=== PATIENT | female | born 1940 | race Caucasian/White ===

== ENCOUNTER → 2017-03-01 | Outpatient (CLI) | payer MEDICARE, BC ==
[~2017-03-01] MED LIST: ASPIRIN E.C. 8181 MG PO; ATIVAN 0.50.5 MG/TAB PO; AUGMENTIN PO; B-121000 MCG PO; BASAGLAR K100 UNIT/1 SQ; BEANO PO; CATAPRES 0.1MG0.1 MG PO; CELEBREX 200MG200 MG PO; CELEBREX200 MG PO; CORTIZONE-10 MAXIM11 TP; CRESTOR20 MG PO; CYMBALTA 30MG30 MG PO; DESITIN RAPID REL13% TP; DETROL 2MG TAB2 MG PO; FIBER0.52 GM PO; FLAX OIL1000 MG PO; FOLIC ACID 11 MG/TA1 PO; GABAPENTIN600 MG PO; GENTAMICIN EYE D5 ML OD; GRALISE600 MG PO; HCTZ 25MG TAB25 MG PO; HCTZ12.5TAB PO; HUMALOG PEN100 U/ML SQ; IMODIUM 2MG CAPS2 MG PO; IPRATROPIUM BROM3 M1 IH; LANTUS100 U/ML SQ; LASIX 20MG TABL20 MG PO; LASIX 40MG TABL40 MG PO; LEVAQUIN 5500 MG/TA1 PO; LEVEMIR100 U/ML SQ; LIPI MAX1 SGL PO; LIVALO2 MG PO; LOPRESSOR 550 MG/TAB PO; LORTAB 10/500 51 TAB PO; LORTAB 5/500 501 TA1 PO; LORTAB 5/500 501 TAB PO; LOTENSIN HCT 101 TAB PO; LOTENSIN10 MG PO; LOTENSIN40 MG PO; LOVAZA1 GM PO; MEDROL 4MG DOSPA4 MG PO; MORPHINE 1515 MG/TAB PO; MUCINEX 60600 MG/TA1 PO; NEURONTIN600 MG/TAB PO; NORCO 325 MG-101 TAB PO; NORCO 325 MG-51 TAB PO; NORVASC 5MG5 MG/TAB PO; NOVLOG SQ; OXYCONTIN 10MG10 MG PO; PLAVIX 75MG TAB75 MG PO; PREDNISONE20 MG PO; PREPARATION H HYDR1% TOP; PROAIR HFA0.09 MG/AC IH; PROVENTIL0.09 MG/A1 IH; REFRESH 1 ML1 ML OP; SINGULAIR10 MG PO; TEGRETOL 1100 MG/TAB PO; TEGRETOL100 M1 PO; TOPROL XL 50MG50 MG PO; TOPROL XL50 MG PO; TYLENOL 325MG325 MG PO; ULTRAM 50MG TAB50 MG PO; VITAMIN D 50,1.25 MG PO; ZANTAC 150MG T150 MG PO; ZITHROMAX Z PA250 MG PO; ZOFRAN 4MG T4 MG/TAB PO; ZOLOFT50 MG PO; ZYRTEC 10MG10 MG PO
== END ==
LOC: MC.RAD 14:40
DX: Z12.31 Encounter for screening mammogram for malignant neoplasm of breast (principal); N64.89 Other specified disorders of breast

== ENCOUNTER → 2017-03-09 | Outpatient (CLI) | payer MEDICARE, BC ==
[~2017-03-09] MED LIST changes: -B-121000 MCG PO; -BASAGLAR K100 UNIT/1 SQ; -DETROL 2MG TAB2 MG PO; -FOLIC ACID 11 MG/TA1 PO; -GENTAMICIN EYE D5 ML OD; -HCTZ 25MG TAB25 MG PO; -IMODIUM 2MG CAPS2 MG PO; -LASIX 20MG TABL20 MG PO; -LASIX 40MG TABL40 MG PO; -LEVEMIR100 U/ML SQ; -LIVALO2 MG PO; -LOPRESSOR 550 MG/TAB PO; -NORCO 325 MG-51 TAB PO; -NOVLOG SQ; -OXYCONTIN 10MG10 MG PO; -PREPARATION H HYDR1% TOP; -REFRESH 1 ML1 ML OP; -TEGRETOL 1100 MG/TAB PO; -ULTRAM 50MG TAB50 MG PO
== END ==
LOC: MC.RAD 12:59
DX: N64.89 Other specified disorders of breast (principal)

== ENCOUNTER → 2017-03-20 | Outpatient (CLI) | payer MEDICARE, BC | LOC: ZCOL.LAB 16:00 | PROVIDERS: Family Medicine | DX: E78.5 Hyperlipidemia, unspecified (principal) ==

== ENCOUNTER → 2017-04-11 | Outpatient (CLI) | payer MEDICARE, BC ==
[2017-04-11 17:16] LABS: COLLECTION METHOD CLEAN CATCH
[2017-04-11 17:48] LABS: MUCOUS Present /lpf; PH 5 (5-8); SQUAMOUS EPITHELIAL 0-2 /hpf; URINE APPEARANCE Clear; URINE BACTERIA None Seen /hpf; URINE BILIRUBIN Negative (NEGATIVE); URINE BLOOD Negative (NEGATIVE); URINE COLOR Yellow; URINE GLUCOSE Negative (NEGATIVE); URINE KETONE Negative (NEGATIVE); URINE LEUKOCYTE ESTERASE Negative (NEGATIVE); URINE PROTEIN(semi-quant) 2+ (NEGATIVE); URINE RBC 0-2 /hpf; URINE UROBILINOGEN Negative (NEGATIVE)
== END ==
LOC: ZCOL.LAB 17:11
PROVIDERS: Family Medicine
DX: N39.0 Urinary tract infection, site not specified (principal)

== ENCOUNTER 2017-04-22 14:36 | Inpatient (IN) | payer MEDICARE, BC ==
[~2017-04-22] VITALS: Ht 154.9 cm; Wt 98.1 kg
[2017-04-22] MEDS ORDERED: LOTENSIN40 MG PO (14:45)
[2017-04-22] MEDS ORDERED: CYMBALTA 30MG30 MG PO (14:46)
[2017-04-22] MEDS ORDERED: ZYRTEC 10MG10 MG PO (14:46)
[2017-04-22] MEDS ORDERED: FLAX OIL1000 MG PO (14:47)
[2017-04-22] MEDS ORDERED: VITAMIN D 50,1.25 MG PO (14:47)
[2017-04-22] MEDS ORDERED: HCTZ 25MG TAB25 MG PO (14:48)
[2017-04-22] MEDS ORDERED: LOVAZA1 GM PO (14:48)
[2017-04-22] MEDS ORDERED: PROAIR HFA0.09 MG/AC IH (14:49)
[2017-04-22] MEDS ORDERED: MUCINEX 60600 MG/TA1 PO (14:50)
[2017-04-22] MEDS ORDERED: ZANTAC 150MG T150 MG PO (14:50)
[2017-04-22] MEDS ORDERED: PREPARATION H HYDR1% TOP (14:51)
[2017-04-22] MEDS ORDERED: NORCO 325 MG-101 TAB PO (14:52)
[2017-04-22] MEDS ORDERED: TEGRETOL 1100 MG/TAB PO (14:52)
[2017-04-22] MEDS ORDERED: MORPHINE 1515 MG/TAB PO (14:54)
[2017-04-22] MEDS ORDERED: NEURONTIN600 MG/TAB PO (14:55)
[2017-04-22] MEDS ORDERED: ASPIRIN E.C. 8181 MG PO (14:59)
[2017-04-22] MEDS ORDERED: IMODIUM 2MG CAPS2 MG PO (15:01)
[2017-04-22] MEDS ORDERED: HUMALOG PEN100 U/ML SQ ×2 (15:02→15:09)
[2017-04-22] MEDS ORDERED: BASAGLAR K100 UNIT/1 SQ (15:02)
[2017-04-22] MEDS ORDERED: DETROL 2MG TAB2 MG PO (15:03)
[2017-04-22] MEDS ORDERED: LIVALO2 MG PO (15:03)
[2017-04-22] MEDS ORDERED: REFRESH 1 ML1 ML OP (15:04)
[2017-04-22] MEDS ORDERED: NORVASC 5MG5 MG/TAB PO (15:05)
[2017-04-22] MEDS ORDERED: LOPRESSOR 550 MG/TAB PO (15:05)
[2017-04-22] MEDS ORDERED: GENTAMICIN EYE D5 ML OD (15:06)
[2017-04-22] MEDS ORDERED: FIBER0.52 GM PO (15:07)
[2017-04-22 15:19] LABS: ARTERIAL BLD GAS O2 SATURATION 85.1 % (92-100); ARTERIAL BLD GAS TCO2 CT 24.6; ARTERIAL BLOOD GAS BASE EXCESS -3.2 (-2-2); ARTERIAL BLOOD GAS HCO3 23.2 meq/L (22-26); ARTERIAL BLOOD GAS PO2 55.9 mmHg (80-100); ARTERIAL BLOOD GAS pH 7.31 (7.35-7.45)
[2017-04-22 15:20] LABS: ALLEN TEST YES; ALLENS TEST RESULT PASS; ATS? YES
[2017-04-22 15:34] LABS: COLLECTION METHOD CATHETER
[2017-04-22 15:41] LABS: ADJUSTED CALCIUM 9.1 mg/dL (8.4-10.2); ALBUMIN 4.1 gm/dL (3.5-5.0); BASO # 0.1 (0.0-0.2); BASO % 0.6 % (0.0-2.0); BILIRUBIN,TOTAL 0.4 mg/dL (0.0-1.0); CALCIUM 9.2 mg/dL (8.4-10.2); CREATININE, serum 1.91 mg/dL (0.52-1.25); EOS # 0.5 (0.0-0.7); EOS % 6.3 % (0-4.0); GRAN % 62.9 % (42.2-75.2); LYMPH # 1.5 (1.2-3.4); MEAN CELL VOLUME 98 fl (80.0-100.0); MEAN CORPUSCULAR HEMOGLOBIN 30 pg (27.0-31.0); MEAN CORPUSCULAR HGB CONC 31 g/dl (33.0-37.0); MEAN PLATELET VOLUME 11.3 fl (7.4-10.4); MONO # 0.9 (0.1-0.6); MONO % 10.7 % (1.7-9.3); PLATELET COUNT 200 K/mm3 (130-400); POTASSIUM 4.5 mmol/L (3.4-5.0); RED BLOOD COUNT 3.88 M/mm3 (4.10-5.30); TOTAL PROTEIN 7.4 gm/dL (6.4-8.2)
[2017-04-22 15:53] LABS: HEMOGLOBIN 11.6 g/dl (12.5-16.0)
[2017-04-22 15:59] LABS: MUCOUS Present /lpf; PH 5 (5-8); SQUAMOUS EPITHELIAL None Seen /hpf; URINE APPEARANCE Clear; URINE BACTERIA Rare /hpf; URINE BILIRUBIN Negative (NEGATIVE); URINE BLOOD Negative (NEGATIVE); URINE COLOR Yellow; URINE GLUCOSE Negative (NEGATIVE); URINE KETONE Negative (NEGATIVE); URINE LEUKOCYTE ESTERASE Negative (NEGATIVE); URINE PROTEIN(semi-quant) 1+ (NEGATIVE); URINE RBC 0-2 /hpf; URINE UROBILINOGEN Negative (NEGATIVE); URINE WBC 0-2 /hpf
[2017-04-22 18:05] VITALS: PULSE 62; TEMP 98
[2017-04-22 20:44] VITALS: BP 133/60; PULSE 68; TEMP 98.5
[2017-04-22 23:54] VITALS: BP 155/57; PULSE 63; TEMP 98.8
[2017-04-23 03:01] VITALS: BP 119/44; PULSE 63; TEMP 98.1
[2017-04-23 05:33] LABS: ALLEN TEST YES; ALLENS TEST RESULT PASS; ARTERIAL BLD GAS TCO2 CT 26.6; ARTERIAL BLOOD GAS HCO3 25.1 meq/L (22-26); ARTERIAL BLOOD GAS PHT 7.34 C (7.35-7.45); ARTERIAL BLOOD GAS PO2 89.4 mmHg (80-100); ARTERIAL BLOOD GAS PO2T 89.4 (80-100); ARTERIAL BLOOD GAS pH 7.34 (7.35-7.45); ATS? YES; OXYHEMOGLOBIN 95.1 %
[2017-04-23 07:20] LABS: BASO % 0.4 % (0.0-2.0); EOS # 0.4 (0.0-0.7); EOS % 5.1 % (0-4.0); GRAN # 5.2 (1.4-6.5); GRAN % 69.2 % (42.2-75.2); HEMATOCRIT 37.1 % (37.0-47.0); LYMPH # 1.2 (1.2-3.4); LYMPH % 16.1 % (20.0-51.0); MEAN CELL VOLUME 96 fl (80.0-100.0); MEAN CORPUSCULAR HEMOGLOBIN 30 pg (27.0-31.0); MEAN CORPUSCULAR HGB CONC 31 g/dl (33.0-37.0); MONO # 0.7 (0.1-0.6); MONO % 8.8 % (1.7-9.3); PLATELET COUNT 190 K/mm3 (130-400); RED BLOOD COUNT 3.85 M/mm3 (4.10-5.30); WHITE BLOOD COUNT 7.5 K/mm3 (4.8-10.8)
[2017-04-23 07:25] LABS: HEMOGLOBIN 11.6 g/dl (12.5-16.0)
[2017-04-23 07:38] VITALS: BP 154/40; PULSE 66; TEMP 97.6
[2017-04-23 07:44] LABS: ADJUSTED CALCIUM 9.4 mg/dL (8.4-10.2); ALBUMIN 3.9 gm/dL (3.5-5.0); BILIRUBIN,TOTAL 0.6 mg/dL (0.0-1.0); CALCIUM 9.3 mg/dL (8.4-10.2); CREATININE, serum 1.49 mg/dL (0.52-1.25); MAGNESIUM 1.7 mg/dL (1.6-2.3); PHOSPHOROUS 5.1 mg/dL (2.5-4.5); POTASSIUM 4.8 mmol/L (3.4-5.0); TOTAL PROTEIN 7.2 gm/dL (6.4-8.2)
[2017-04-23 11:34] VITALS: BP 149/47; PULSE 67; TEMP 97.7
[2017-04-23 15:40] VITALS: BP 151/56; PULSE 73; TEMP 98.5
[2017-04-23 20:18] VITALS: BP 121/44; PULSE 76; TEMP 98.2
[2017-04-24] VITALS: BP 135/42; PULSE 58; TEMP 97.7
[2017-04-24 04:00] VITALS: BP 130/48; PULSE 63; TEMP 97.7
[2017-04-24 07:37] VITALS: BP 145/60; PULSE 66; TEMP 97.9
[2017-04-24 08:00] LABS: CREATININE, serum 1.33 mg/dL (0.52-1.25); PHOSPHOROUS 3.5 mg/dL (2.5-4.5); POTASSIUM 5.1 mmol/L (3.4-5.0)
[2017-04-24 11:21] VITALS: BP 167/77; PULSE 65; TEMP 98.2
[2017-04-24 15:28] VITALS: BP 146/84; PULSE 61; TEMP 98
[2017-04-24 21:10] VITALS: BP 116/53; PULSE 66; TEMP 97.7
[2017-04-25] VITALS: BP 137/68; PULSE 62; TEMP 97.6
[2017-04-25 03:44] VITALS: BP 141/74; PULSE 61; TEMP 97.5
[2017-04-25 07:12] LABS: BASO % 0.4 % (0.0-2.0); EOS # 0.2 (0.0-0.7); EOS % 1.8 % (0-4.0); GRAN # 7.1 (1.4-6.5); GRAN % 74.1 % (42.2-75.2); HEMATOCRIT 39.8 % (37.0-47.0); LYMPH # 1.3 (1.2-3.4); LYMPH % 13.7 % (20.0-51.0); MEAN CELL VOLUME 93 fl (80.0-100.0); MEAN CORPUSCULAR HEMOGLOBIN 30 pg (27.0-31.0); MEAN CORPUSCULAR HGB CONC 33 g/dl (33.0-37.0); MEAN PLATELET VOLUME 11.3 fl (7.4-10.4); MONO # 0.9 (0.1-0.6); MONO % 9.6 % (1.7-9.3); PLATELET COUNT 217 K/mm3 (130-400); WHITE BLOOD COUNT 9.6 K/mm3 (4.8-10.8)
[2017-04-25 07:34] LABS: CALCIUM 9.8 mg/dL (8.4-10.2); CREATININE, serum 1.42 mg/dL (0.52-1.25); MAGNESIUM 1.4 mg/dL (1.6-2.3); PHOSPHOROUS 4.4 mg/dL (2.5-4.5); POTASSIUM 4.3 mmol/L (3.4-5.0)
[2017-04-25 08:26] VITALS: BP 185/83; PULSE 70; TEMP 98
[2017-04-25 11:31] VITALS: BP 147/83; PULSE 58; TEMP 97.9
[2017-04-25 16:12] VITALS: BP 153/60; PULSE 57; TEMP 98
[2017-04-25 20:20] VITALS: BP 153/94; PULSE 62; TEMP 97.4
[2017-04-26] VITALS: BP 133/64; PULSE 55; TEMP 97.5
[2017-04-26 05:45] VITALS: BP 153/88; PULSE 58; TEMP 97.6
[2017-04-26 07:18] LABS: CALCIUM 9.6 mg/dL (8.4-10.2); CREATININE, serum 1.45 mg/dL (0.52-1.25)
[2017-04-26 07:34] VITALS: BP 154/66; PULSE 64; TEMP 98.2
[2017-04-26] MEDS ORDERED: NORCO 325 MG-51 TAB PO (10:10)
[2017-04-26] MEDS ORDERED: OXYCONTIN 10MG10 MG PO (10:10)
[2017-04-26] MEDS ORDERED: TYLENOL 325MG325 MG PO (10:10)
[2017-04-26] MEDS ORDERED: LASIX 40MG TABL40 MG PO (10:13)
[2017-04-26] MEDS ORDERED: B-121000 MCG PO (10:14)
[2017-04-26] MEDS ORDERED: FOLIC ACID 11 MG/TA1 PO (10:15)
[2017-04-26 11:53] VITALS: BP 154/66; PULSE 64; TEMP 98.2
== END 2017-04-26 14:30 | DRG 189 ==
LOC: COL.ER 14:36 → MEDICAL 16:52
PROVIDERS: Emergency Medicine; Internal Medicine; Physician Assistant
DX: J81.0 Acute pulmonary edema (principal); N17.9 Acute kidney failure, unspecified; N18.9 Chronic kidney disease, unspecified; E11.22 Type 2 diabetes mellitus with diabetic chronic kidney disease; I12.9 Hypertensive chronic kidney disease with stage 1 through stage 4 chronic kidney disease, or unspecified chronic kidney disease; Z79.4 Long term (current) use of insulin; K90.0 Celiac disease; G89.29 Other chronic pain; Z85.828 Personal history of other malignant neoplasm of skin; E83.42 Hypomagnesemia; E83.39 Other disorders of phosphorus metabolism
CPT/HCPCS: 99222-AI; 99231-AI; 99232-AI; 99239; G0378; G8978-GP; G8979-GP; G8987-GO; G8988-GO; G8996-GN; G8997-GN; G8998-GN; J1644; J1815; J1940; J2310; J2405; J3420; J3475; J7030

== ENCOUNTER 2017-04-27 15:36 | Inpatient (IN) | payer MEDICARE, BC ==
[~2017-04-27] VITALS: Ht 165.1 cm; Wt 98.3 kg
[~2017-04-27 15:36] MED LIST changes: +B-121000 MCG PO; +BASAGLAR K100 UNIT/1 SQ; +DETROL 2MG TAB2 MG PO; +FOLIC ACID 11 MG/TA1 PO; +GENTAMICIN EYE D5 ML OD; +HCTZ 25MG TAB25 MG PO; +IMODIUM 2MG CAPS2 MG PO; +LASIX 40MG TABL40 MG PO; +LIVALO2 MG PO; +LOPRESSOR 550 MG/TAB PO; +NORCO 325 MG-51 TAB PO; +OXYCONTIN 10MG10 MG PO; +PREPARATION H HYDR1% TOP; +REFRESH 1 ML1 ML OP; +TEGRETOL 1100 MG/TAB PO
[2017-04-27 16:53] LABS: COLLECTION METHOD CLEAN CATCH
[2017-04-27 17:05] LABS: MUCOUS Present /lpf; PH 6 (5-8); SQUAMOUS EPITHELIAL None Seen /hpf; URINE APPEARANCE Hazy; URINE BACTERIA None Seen /hpf; URINE BILIRUBIN Negative (NEGATIVE); URINE BLOOD 3+ (NEGATIVE); URINE COLOR Yellow; URINE GLUCOSE 1+ (NEGATIVE); URINE KETONE Negative (NEGATIVE); URINE LEUKOCYTE ESTERASE Negative (NEGATIVE); URINE PROTEIN(semi-quant) 2+ (NEGATIVE); URINE RBC >50 /hpf; URINE UROBILINOGEN Negative (NEGATIVE)
[2017-04-27 17:19] LABS: VENOUS BLOOD GAS SAO2 95.3 % (60-80)
[2017-04-27 17:20] LABS: VENOUS BLOOD GAS SITE VENIPUNCTURE
[2017-04-27 17:31] LABS: ADJUSTED CALCIUM 9.4 mg/dL (8.4-10.2); ALBUMIN 4.5 gm/dL (3.5-5.0); BILIRUBIN,TOTAL 0.5 mg/dL (0.0-1.0); CALCIUM 9.8 mg/dL (8.4-10.2); CREATININE, serum 2.63 mg/dL (0.52-1.25); POTASSIUM 4.2 mmol/L (3.4-5.0); TOTAL PROTEIN 7.8 gm/dL (6.4-8.2)
[2017-04-27 17:36] LABS: HEMATOCRIT 43.1 % (37.0-47.0); HEMOGLOBIN 14.2 g/dl (12.5-16.0); MEAN CELL VOLUME 93 fl (80.0-100.0); MEAN CORPUSCULAR HEMOGLOBIN 31 pg (27.0-31.0); MEAN CORPUSCULAR HGB CONC 33 g/dl (33.0-37.0); MEAN PLATELET VOLUME 11.3 fl (7.4-10.4); PLATELET COUNT 281 K/mm3 (130-400); RED BLOOD COUNT 4.66 M/mm3 (4.10-5.30); WHITE BLOOD COUNT 12.9 K/mm3 (4.8-10.8)
[2017-04-27 17:37] LABS: ADD PATHOLOGY DIFF REVIEW NO
[2017-04-27 18:04] LABS: BAND 3 % (0-10); BASOPHIL 1 % (0-2); EOSINOPHIL 4 % (0-4); LYMPHOCYTE 16 % (20.0-51.0); NEUTROPHILS 68 % (42.0-75.2); PLATELET ESTIMATE NORMAL (NORMAL); TOTAL CELLS COUNTED 100
[2017-04-27 20:53] VITALS: BP 116/53; PULSE 79; TEMP 98.3
[2017-04-27 23:53] VITALS: BP 128/38; PULSE 69; TEMP 97.8
[2017-04-28 03:44] VITALS: BP 98/55; PULSE 92; TEMP 97.8
[2017-04-28 06:45] LABS: BASO # 0.1 (0.0-0.2); BASO % 0.6 % (0.0-2.0); EOS # 0.4 (0.0-0.7); EOS % 3.3 % (0-4.0); GRAN # 7.5 (1.4-6.5); GRAN % 68.3 % (42.2-75.2); HEMATOCRIT 41.2 % (37.0-47.0); HEMOGLOBIN 13.1 g/dl (12.5-16.0); LYMPH # 1.7 (1.2-3.4); LYMPH % 15.5 % (20.0-51.0); MEAN CELL VOLUME 95 fl (80.0-100.0); MEAN CORPUSCULAR HEMOGLOBIN 30 pg (27.0-31.0); MEAN CORPUSCULAR HGB CONC 32 g/dl (33.0-37.0); MEAN PLATELET VOLUME 11.4 fl (7.4-10.4); MONO # 1.3 (0.1-0.6); MONO % 11.9 % (1.7-9.3); PLATELET COUNT 237 K/mm3 (130-400); RED BLOOD COUNT 4.33 M/mm3 (4.10-5.30)
[2017-04-28 06:48] LABS: CALCIUM 8.9 mg/dL (8.4-10.2); CREATININE, serum 2.46 mg/dL (0.52-1.25); POTASSIUM 4.1 mmol/L (3.4-5.0)
[2017-04-28 08:04] VITALS: BP 104/57; PULSE 91; TEMP 97.5
[2017-04-28 11:13] VITALS: BP 109/52; BP 94/31; PULSE 101; TEMP 98.4; TEMP 98.7
[2017-04-28 11:27] LABS: ARTERIAL BLD GAS O2 SATURATION 92.3 % (92-100); ARTERIAL BLD GAS TCO2 CT 26.2; ARTERIAL BLOOD GAS BASE EXCESS -0.4 (-2-2); ARTERIAL BLOOD GAS HCO3 24.9 meq/L (22-26); ARTERIAL BLOOD GAS PO2 68.8 mmHg (80-100); ARTERIAL BLOOD GAS pH 7.38 (7.35-7.45); OXYHEMOGLOBIN 91.7 %
[2017-04-28 11:29] LABS: ALLEN TEST YES; ALLENS TEST RESULT PASS; ATS? YES
[2017-04-28 15:38] VITALS: BP 114/48; PULSE 85; TEMP 97.4
[2017-04-29 00:24] VITALS: BP 133/76; PULSE 84
[2017-04-29 05:24] VITALS: BP 130/89; PULSE 93; TEMP 98.5
[2017-04-29 06:32] LABS: BASO % 0.5 % (0.0-2.0); EOS # 0.4 (0.0-0.7); EOS % 4.9 % (0-4.0); GRAN # 5.2 (1.4-6.5); GRAN % 66.2 % (42.2-75.2); HEMATOCRIT 38.1 % (37.0-47.0); HEMOGLOBIN 12.2 g/dl (12.5-16.0); LYMPH # 1.3 (1.2-3.4); LYMPH % 16.6 % (20.0-51.0); MEAN CELL VOLUME 95 fl (80.0-100.0); MEAN CORPUSCULAR HEMOGLOBIN 31 pg (27.0-31.0); MEAN CORPUSCULAR HGB CONC 32 g/dl (33.0-37.0); MEAN PLATELET VOLUME 11.1 fl (7.4-10.4); MONO # 0.9 (0.1-0.6); MONO % 11.4 % (1.7-9.3); PLATELET COUNT 193 K/mm3 (130-400); WHITE BLOOD COUNT 7.9 K/mm3 (4.8-10.8)
[2017-04-29 06:56] LABS: CREATININE, serum 2.08 mg/dL (0.52-1.25); MAGNESIUM 2.1 mg/dL (1.6-2.3); PHOSPHOROUS 5.7 mg/dL (2.5-4.5); POTASSIUM 4.3 mmol/L (3.4-5.0)
[2017-04-29 09:15] VITALS: BP 143/56; PULSE 100; TEMP 97.8
[2017-04-29 11:35] VITALS: BP 102/56; PULSE 68; TEMP 97.6
[2017-04-29 15:22] VITALS: BP 107/48; PULSE 96; TEMP 97.9
[2017-04-29 20:18] VITALS: BP 111/50; PULSE 108; TEMP 98.3
[2017-04-30 00:11] VITALS: BP 124/49; PULSE 92; TEMP 98.6
[2017-04-30 03:54] VITALS: BP 138/58; PULSE 93; TEMP 97.3
[2017-04-30 08:03] VITALS: BP 158/75; PULSE 90; TEMP 97.4
[2017-04-30 09:40] LABS: CALCIUM 9.6 mg/dL (8.4-10.2); CREATININE, serum 1.59 mg/dL (0.52-1.25); POTASSIUM 4.5 mmol/L (3.4-5.0)
[2017-04-30 11:05] VITALS: BP 154/96; PULSE 102; TEMP 97.4
[2017-04-30] MEDS ORDERED: LASIX 20MG TABL20 MG PO (12:25)
[2017-04-30] MEDS ORDERED: LEVEMIR100 U/ML SQ (12:28)
[2017-04-30] MEDS ORDERED: NOVLOG SQ (12:28)
[2017-04-30] MEDS ORDERED: ULTRAM 50MG TAB50 MG PO (12:30)
[2017-04-30 13:45] VITALS: PULSE 104
== END 2017-04-30 18:10 | DRG 682 ==
LOC: COL.ER 15:36 → MEDICAL 18:09
PROVIDERS: Emergency Medicine; Internal Medicine; Nurse Practitioner Family; Physician Assistant
DX: N17.9 Acute kidney failure, unspecified (principal); G92 Toxic encephalopathy; N39.0 Urinary tract infection, site not specified; I13.0 Hypertensive heart and chronic kidney disease with heart failure and stage 1 through stage 4 chronic kidney disease, or unspecified chronic kidney disease; I50.32 Chronic diastolic (congestive) heart failure; E87.1 Hypo-osmolality and hyponatremia; Z66 Do not resuscitate; T40.2X5A Adverse effect of other opioids, initial encounter; E11.22 Type 2 diabetes mellitus with diabetic chronic kidney disease; N18.9 Chronic kidney disease, unspecified; K90.0 Celiac disease; Z79.4 Long term (current) use of insulin; Z86.73 Personal history of transient ischemic attack (TIA), and cerebral infarction without residual deficits
CPT/HCPCS: 99222-AI; 99232-AI; 99239; A4314; J0696; J1644; J1815; J1940; J2310; J7030

== ENCOUNTER → 2017-05-11 | Outpatient (REF) ==
[~2017-05-11] MED LIST changes: +LASIX 20MG TABL20 MG PO; +LEVEMIR100 U/ML SQ; +NOVLOG SQ; +ULTRAM 50MG TAB50 MG PO
[2017-05-11 19:00] LABS: COLLECTION METHOD CATHETER
[2017-05-11 19:47] LABS: PH 7 (5-8); SQUAMOUS EPITHELIAL 0-2 /hpf; URINE APPEARANCE Clear; URINE BACTERIA Rare /hpf; URINE BILIRUBIN Negative (NEGATIVE); URINE BLOOD Negative (NEGATIVE); URINE COLOR Yellow; URINE GLUCOSE 3+ (NEGATIVE); URINE KETONE Negative (NEGATIVE); URINE LEUKOCYTE ESTERASE 1+ (NEGATIVE); URINE PROTEIN(semi-quant) 3+ (NEGATIVE); URINE UROBILINOGEN Negative (NEGATIVE); URINE WBC >50 /hpf
== END ==
LOC: ZCOL.LAB 18:58
PROVIDERS: Radiology Radiation Oncology
DX: N39.0 Urinary tract infection, site not specified (principal)

== ENCOUNTER → 2017-08-28 | Outpatient (CLI) | payer MEDICARE, BC ==
[2017-08-28 12:08] LABS: BASO # 0.1 (0.0-0.2); BASO % 0.6 % (0.0-2.0); EOS # 0.2 (0.0-0.7); EOS % 2.5 % (0-4.0); HEMATOCRIT 43.6 % (37.0-47.0); HEMOGLOBIN 14.4 g/dl (12.5-16.0); LYMPH # 1.5 (1.2-3.4); LYMPH % 15.2 % (20.0-51.0); MEAN CELL VOLUME 90 fl (80.0-100.0); MEAN CORPUSCULAR HEMOGLOBIN 30 pg (27.0-31.0); MEAN CORPUSCULAR HGB CONC 33 g/dl (33.0-37.0); MEAN PLATELET VOLUME 11.1 fl (7.4-10.4); MONO # 0.8 (0.1-0.6); MONO % 8.3 % (1.7-9.3); PLATELET COUNT 239 K/mm3 (130-400); RED BLOOD COUNT 4.85 M/mm3 (4.10-5.30); REDCELL DISTRIBUTION WIDTH-CV 13.6 % (11.5-14.5)
[2017-08-28 12:24] LABS: CALCIUM 9.2 mg/dL (8.4-10.2); CREATININE, serum 1.16 mg/dL (0.52-1.25); POTASSIUM 3.3 mmol/L (3.4-5.0)
== END ==
LOC: ZCOL.LAB 11:54
PROVIDERS: Family Medicine
DX: I50.33 Acute on chronic diastolic (congestive) heart failure (principal); E78.5 Hyperlipidemia, unspecified; N18.3 Chronic kidney disease, stage 3 (moderate)

== ENCOUNTER → 2017-10-02 | Outpatient (REF) ==
[2017-10-02 13:54] LABS: COLLECTION METHOD CLEAN CATCH
[2017-10-02 14:28] LABS: MUCOUS Present /lpf; PH 7 (5-8); URINE APPEARANCE Hazy; URINE BACTERIA None Seen /hpf; URINE BILIRUBIN Negative (NEGATIVE); URINE BLOOD Negative (NEGATIVE); URINE COLOR Yellow; URINE GLUCOSE 2+ (NEGATIVE); URINE KETONE Negative (NEGATIVE); URINE LEUKOCYTE ESTERASE 2+ (NEGATIVE); URINE NITRATE Negative (NEGATIVE); URINE PROTEIN(semi-quant) 3+ (NEGATIVE); URINE UROBILINOGEN Negative (NEGATIVE)
== END ==
LOC: ZCOL.LAB 13:51
PROVIDERS: Family Medicine
DX: N18.3 Chronic kidney disease, stage 3 (moderate) (principal)

== ENCOUNTER → 2017-10-06 | Outpatient (CLI) | payer MEDICARE, BC ==
[2017-10-06 17:06] LABS: BASO % 0.5 % (0.0-2.0); EOS # 0.3 (0.0-0.7); EOS % 3.4 % (0-4.0); GRAN % 70.8 % (42.2-75.2); HEMATOCRIT 41.1 % (37.0-47.0); HEMOGLOBIN 13.5 g/dl (12.5-16.0); LYMPH # 1.4 (1.2-3.4); LYMPH % 16.4 % (20.0-51.0); MEAN CELL VOLUME 91 fl (80.0-100.0); MEAN CORPUSCULAR HEMOGLOBIN 30 pg (27.0-31.0); MEAN CORPUSCULAR HGB CONC 33 g/dl (33.0-37.0); MEAN PLATELET VOLUME 11.4 fl (7.4-10.4); MONO # 0.7 (0.1-0.6); MONO % 8.5 % (1.7-9.3); PLATELET COUNT 269 K/mm3 (130-400); RED BLOOD COUNT 4.53 M/mm3 (4.10-5.30); REDCELL DISTRIBUTION WIDTH-CV 13.9 % (11.5-14.5)
[2017-10-06 17:12] LABS: CALCIUM 9.1 mg/dL (8.4-10.2); CREATININE, serum 1.41 mg/dL (0.52-1.25); POTASSIUM 4.2 mmol/L (3.4-5.0)
== END ==
LOC: ZCOL.LAB 14:49
PROVIDERS: Family Medicine
DX: I12.9 Hypertensive chronic kidney disease with stage 1 through stage 4 chronic kidney disease, or unspecified chronic kidney disease (principal); N18.3 Chronic kidney disease, stage 3 (moderate)

== ENCOUNTER → 2017-10-22 | Outpatient (CLI) | payer MEDICARE, BC ==
[2017-10-22 17:50] LABS: CHOLESTEROL RISK RATIO 4.3
[2017-10-22 18:07] LABS: CARBAMAZEPINE (TEGRETOL) 3.2 ug/mL (4.0-12.0)
== END ==
LOC: ZCOL.LAB 17:34
PROVIDERS: Family Medicine
DX: I50.33 Acute on chronic diastolic (congestive) heart failure (principal); E78.5 Hyperlipidemia, unspecified; M62.81 Muscle weakness (generalized)

== ENCOUNTER → 2017-10-25 | Outpatient (REF) | LOC: ZCOL.LAB 14:11 | DX: E08.9 Diabetes mellitus due to underlying condition without complications (principal) ==

== ENCOUNTER → 2017-11-02 | Outpatient (CLI) | payer MEDICARE, BC | LOC: ZCOL.LAB 13:50 | DX: E55.9 Vitamin D deficiency, unspecified (principal) ==

== ENCOUNTER → 2017-11-26 | Outpatient (REF) | LOC: ZCOL.LAB 12:36 | DX: N18.3 Chronic kidney disease, stage 3 (moderate) (principal) ==

== ENCOUNTER → 2017-12-03 | Outpatient (CLI) | payer MEDICARE, BC | LOC: COL.RAD 07:41 | DX: K86.2 Cyst of pancreas (principal) | CPT/HCPCS: Q9967 ==

== ENCOUNTER → 2018-01-15 | Outpatient (CLI) | payer MEDICARE, BC ==
[2018-01-15 20:59] LABS: COLLECTION METHOD CLEAN CATCH
[2018-01-15 21:15] LABS: MUCOUS Present /lpf; PH 7 (5-8); URINE APPEARANCE Hazy; URINE BACTERIA None Seen /hpf; URINE BILIRUBIN Negative (NEGATIVE); URINE BLOOD Negative (NEGATIVE); URINE COLOR Yellow; URINE GLUCOSE Negative (NEGATIVE); URINE KETONE Negative (NEGATIVE); URINE LEUKOCYTE ESTERASE 3+ (NEGATIVE); URINE NITRATE Negative (NEGATIVE); URINE PROTEIN(semi-quant) 2+ (NEGATIVE); URINE TRIPLE PHOSPHATE CRYSTAL Present /hpf; URINE UROBILINOGEN Negative (NEGATIVE); URINE WBC >50 /hpf
== END ==
LOC: ZCOL.LAB 17:00
PROVIDERS: Family Medicine
DX: N39.0 Urinary tract infection, site not specified (principal)

== ENCOUNTER → 2018-01-30 | Outpatient (REF) ==
[2018-01-30 22:28] LABS: COLLECTION METHOD CLEAN CATCH
[2018-01-30 22:44] LABS: PH 7 (5-8); URINE APPEARANCE Cloudy; URINE BACTERIA None Seen /hpf; URINE BILIRUBIN Negative (NEGATIVE); URINE BLOOD Negative (NEGATIVE); URINE COLOR Yellow; URINE GLUCOSE 1+ (NEGATIVE); URINE KETONE Negative (NEGATIVE); URINE LEUKOCYTE ESTERASE 3+ (NEGATIVE); URINE NITRATE Negative (NEGATIVE); URINE PROTEIN(semi-quant) 2+ (NEGATIVE); URINE RBC 0-2 /hpf; URINE UROBILINOGEN Negative (NEGATIVE); URINE WBC >50 /hpf
== END ==
LOC: ZCOL.LAB 22:27
PROVIDERS: Family Medicine
DX: N39.0 Urinary tract infection, site not specified (principal)

== ENCOUNTER → 2018-03-19 | Outpatient (CLI) | payer MEDICARE, BC | LOC: MC.RAD 10:40 | DX: Z12.31 Encounter for screening mammogram for malignant neoplasm of breast (principal) ==

== ENCOUNTER → 2018-04-30 | Outpatient (REF) ==
[2018-04-30 06:24] LABS: COLLECTION METHOD CLEAN CATCH
[2018-04-30 06:34] LABS: MUCOUS Present /lpf; PH 6 (5-8); URINE APPEARANCE Cloudy; URINE BACTERIA None Seen /hpf; URINE BILIRUBIN Negative (NEGATIVE); URINE BLOOD Negative (NEGATIVE); URINE COLOR Yellow; URINE GLUCOSE Negative (NEGATIVE); URINE KETONE Negative (NEGATIVE); URINE LEUKOCYTE ESTERASE 3+ (NEGATIVE); URINE NITRATE Negative (NEGATIVE); URINE PROTEIN(semi-quant) 2+ (NEGATIVE); URINE UROBILINOGEN Negative (NEGATIVE)
== END ==
LOC: ZCOL.LAB 06:22
PROVIDERS: Family Medicine
DX: N39.0 Urinary tract infection, site not specified (principal)

== ENCOUNTER → 2018-06-07 | Outpatient (CLI) | payer MEDICARE, BC | LOC: ZCOL.LAB 14:52 | DX: R07.0 Pain in throat (principal) ==

== ENCOUNTER → 2018-08-30 | Outpatient (CLI) | payer MEDICARE, BC, MEDICAID | LOC: ZCOL.LAB 12:51 | DX: R26.2 Difficulty in walking, not elsewhere classified (principal); E08.29 Diabetes mellitus due to underlying condition with other diabetic kidney complication ==

== ENCOUNTER → 2018-09-20 | Outpatient (REF) | LOC: ZLAB.STJ 16:26 | DX: Z01.89 Encounter for other specified special examinations (principal) ==

== ENCOUNTER → 2018-09-21 | Outpatient (REF) | LOC: ZCOL.LAB 13:28 | DX: J10.1 Influenza due to other identified influenza virus with other respiratory manifestations (principal) ==

== ENCOUNTER → 2018-12-26 | Outpatient (REF) | LOC: ZCOL.LAB 14:34 | DX: I13.0 Hypertensive heart and chronic kidney disease with heart failure and stage 1 through stage 4 chronic kidney disease, or unspecified chronic kidney disease (principal); I50.33 Acute on chronic diastolic (congestive) heart failure; N18.3 Chronic kidney disease, stage 3 (moderate) ==

== ENCOUNTER → 2018-12-31 | Outpatient (CLI) | payer MEDICARE, BC, MEDICAID ==
[2018-12-31 18:17] LABS: BASO # 0.1 (0.0-0.2); BASO % 0.9 % (0.0-2.0); EOS # 0.4 (0.0-0.7); EOS % 5.6 % (0-4.0); GRAN # 5.1 (1.4-6.5); GRAN % 65.5 % (42.2-75.2); HEMATOCRIT 41.1 % (37.0-47.0); HEMOGLOBIN 12.7 g/dl (12.5-16.0); LYMPH # 1.6 (1.2-3.4); LYMPH % 20.3 % (20.0-51.0); MEAN CELL VOLUME 96 fl (80.0-100.0); MEAN CORPUSCULAR HEMOGLOBIN 30 pg (27.0-31.0); MEAN CORPUSCULAR HGB CONC 31 g/dl (33.0-37.0); MEAN PLATELET VOLUME 11.7 fl (7.4-10.4); MONO # 0.6 (0.1-0.6); MONO % 7.3 % (1.7-9.3); PLATELET COUNT 226 K/mm3 (130-400); RED BLOOD COUNT 4.29 M/mm3 (4.10-5.30)
[2018-12-31 18:22] LABS: ALBUMIN 3.7 gm/dL (3.5-5.0); BILIRUBIN,TOTAL 0.3 mg/dL (0.0-1.0); CALCIUM 9.3 mg/dL (8.4-10.2); CREATININE, serum 1.31 (0.52-1.25); POTASSIUM 5.2 mmol/L (3.4-5.0); TOTAL PROTEIN 6.7 gm/dL (6.4-8.2)
[2018-12-31 18:50] LABS: THYROID STIMULATING HORMONE 0.948 uIU/mL (0.465-4.680)
== END ==
LOC: ZCOL.LAB 16:47
PROVIDERS: Family Medicine
DX: I50.33 Acute on chronic diastolic (congestive) heart failure (principal); E11.22 Type 2 diabetes mellitus with diabetic chronic kidney disease; E78.5 Hyperlipidemia, unspecified

== ENCOUNTER → 2019-01-01 | Outpatient (CLI) | payer MEDICARE, BC, MEDICAID ==
[2019-01-01 19:10] LABS: URINE MICROALBUMIN 46.9 mg/dL (0.0-1.7)
== END ==
LOC: ZCOL.LAB 07:30
PROVIDERS: Family Medicine
DX: N18.3 Chronic kidney disease, stage 3 (moderate) (principal)

== ENCOUNTER → 2019-01-10 | Outpatient (CLI) | payer MEDICARE, BC, MEDICAID ==
[2019-01-10 14:28] LABS: BASO # 0.1 (0.0-0.2); BASO % 0.6 % (0.0-2.0); EOS # 0.5 (0.0-0.7); EOS % 4.9 % (0-4.0); GRAN # 7.4 (1.4-6.5); GRAN % 72.4 % (42.2-75.2); HEMATOCRIT 38.6 % (37.0-47.0); HEMOGLOBIN 12.4 g/dl (12.5-16.0); LYMPH # 1.4 (1.2-3.4); LYMPH % 13.3 % (20.0-51.0); MEAN CELL VOLUME 95 fl (80.0-100.0); MEAN CORPUSCULAR HEMOGLOBIN 30 pg (27.0-31.0); MEAN CORPUSCULAR HGB CONC 32 g/dl (33.0-37.0); MEAN PLATELET VOLUME 11.5 fl (7.4-10.4); MONO # 0.9 (0.1-0.6); MONO % 8.4 % (1.7-9.3); PLATELET COUNT 216 K/mm3 (130-400); RED BLOOD COUNT 4.08 M/mm3 (4.10-5.30)
[2019-01-10 14:42] LABS: ALBUMIN 3.8 gm/dL (3.5-5.0); BILIRUBIN,TOTAL 0.3 mg/dL (0.0-1.0); CALCIUM 9.3 mg/dL (8.4-10.2); CREATININE, serum 1.31 (0.52-1.25); POTASSIUM 5.2 mmol/L (3.4-5.0); TOTAL PROTEIN 6.6 gm/dL (6.4-8.2)
[2019-01-10 15:12] LABS: THYROID STIMULATING HORMONE 0.921 uIU/mL (0.465-4.680)
== END ==
LOC: ZCOL.LAB 14:02
PROVIDERS: Family Medicine
DX: I13.0 Hypertensive heart and chronic kidney disease with heart failure and stage 1 through stage 4 chronic kidney disease, or unspecified chronic kidney disease (principal); E11.22 Type 2 diabetes mellitus with diabetic chronic kidney disease; E03.9 Hypothyroidism, unspecified; E55.9 Vitamin D deficiency, unspecified; N18.9 Chronic kidney disease, unspecified; I50.9 Heart failure, unspecified

== ENCOUNTER → 2019-02-05 | Outpatient (CLI) | payer MEDICARE, BC, MEDICAID ==
[2019-02-05 20:44] LABS: ANION GAP 10 mmol/L (7-16); BLOOD UREA NITROGEN 25 mg/dL (7-17); CALCIUM 9.1 mg/dL (8.4-10.2); CARBON DIOXIDE 26 mmol/L (22-30); CHLORIDE 103 mmol/L (98-107); CHOLESTEROL 217 mg/dL (120-200); CREATININE, serum 1.32 (0.52-1.25); GLUCOSE 124 mg/dL (74-106); HDL CHOLESTEROL 54 mg/dL; LDL CHOLESTEROL 117 mg/dL; SODIUM 139 mmol/L (137-145); TRIGLYCERIDE 231 mg/dL
[2019-02-05 21:00] LABS: CARBAMAZEPINE (TEGRETOL) < 3.0 ug/mL (4.0-12.0)
== END ==
LOC: ZCOL.LAB 10:35
PROVIDERS: Family Medicine
DX: I13.0 Hypertensive heart and chronic kidney disease with heart failure and stage 1 through stage 4 chronic kidney disease, or unspecified chronic kidney disease (principal); E11.40 Type 2 diabetes mellitus with diabetic neuropathy, unspecified; E78.5 Hyperlipidemia, unspecified

== ENCOUNTER → 2019-02-06 | Outpatient (CLI) | payer MEDICARE, BC, MEDICAID ==
[2019-02-06 19:06] LABS: ANION GAP 8 mmol/L (7-16); BLOOD UREA NITROGEN 23 mg/dL (7-17); CALCIUM 9.1 mg/dL (8.4-10.2); CARBON DIOXIDE 26 mmol/L (22-30); CHLORIDE 104 mmol/L (98-107); CHOLESTEROL 232 mg/dL (120-200); CHOLESTEROL RISK RATIO 4.6; CREATININE, serum 1.28 (0.52-1.25); GLUCOSE 110 mg/dL (74-106); HDL CHOLESTEROL 50 mg/dL; LDL CHOLESTEROL 125 mg/dL; SODIUM 139 mmol/L (137-145); TRIGLYCERIDE 287 mg/dL
[2019-02-06 19:15] LABS: POTASSIUM 6.1 mmol/L (3.4-5.0)
[2019-02-06 19:29] LABS: CARBAMAZEPINE (TEGRETOL) < 3.0 ug/mL (4.0-12.0)
== END ==
LOC: ZCOL.LAB 16:17
PROVIDERS: Family Medicine
DX: N18.3 Chronic kidney disease, stage 3 (moderate) (principal); E78.5 Hyperlipidemia, unspecified; R56.9 Unspecified convulsions

== ENCOUNTER → 2019-03-24 | Outpatient (CLI) | payer MEDICARE, BC, MEDICAID | LOC: MC.RAD 10:03 | DX: Z12.31 Encounter for screening mammogram for malignant neoplasm of breast (principal) ==

== ENCOUNTER → 2019-07-16 | Outpatient (CLI) | payer MEDICARE, BC, MEDICAID ==
[2019-07-16 12:44] LABS: COLLECTION METHOD CATHETER
[2019-07-16 14:06] LABS: MUCOUS Present /lpf; PH 6 (5-8); URINE APPEARANCE Clear; URINE BACTERIA Rare /hpf; URINE BILIRUBIN Negative (NEGATIVE); URINE BLOOD Negative (NEGATIVE); URINE COLOR Straw; URINE GLUCOSE Negative (NEGATIVE); URINE KETONE Negative (NEGATIVE); URINE LEUKOCYTE ESTERASE Trace (NEGATIVE); URINE NITRATE Negative (NEGATIVE); URINE PROTEIN(semi-quant) 1+ (NEGATIVE); URINE RBC 0-2 /hpf; URINE UROBILINOGEN Negative (NEGATIVE)
== END ==
LOC: ZCOL.LAB 11:51
PROVIDERS: Family Medicine
DX: N39.0 Urinary tract infection, site not specified (principal)

== ENCOUNTER → 2019-08-07 | Outpatient (CLI) | payer MEDICARE, BC, MEDICAID ==
[2019-08-07 14:30] LABS: CALCIUM 9.3 mg/dL (8.4-10.2); CREATININE, serum 1.32 (0.52-1.25); MAGNESIUM 1.5 mg/dL (1.6-2.3); POTASSIUM 4.9 mmol/L (3.4-5.0)
== END ==
LOC: ZCOL.LAB 12:42
PROVIDERS: Family Medicine
DX: E11.22 Type 2 diabetes mellitus with diabetic chronic kidney disease (principal); K90.0 Celiac disease

== ENCOUNTER → 2019-11-12 | Outpatient (CLI) | payer MEDICARE, BC, MEDICAID | LOC: ZCOL.LAB 15:48 | DX: K21.9 Gastro-esophageal reflux disease without esophagitis (principal); K90.0 Celiac disease ==

== ENCOUNTER → 2019-12-30 | Outpatient (CLI) | payer MEDICARE, BC, MEDICAID ==
[2019-12-30 11:44] LABS: BASO # 0.1 (0.0-0.2); BASO % 0.8 % (0.0-2.0); EOS # 0.3 (0.0-0.7); EOS % 4.2 % (0-4.0); GRAN # 5.3 (1.4-6.5); GRAN % 67.5 % (42.2-75.2); HEMATOCRIT 42.1 % (37.0-47.0); HEMOGLOBIN 13.6 g/dl (12.5-16.0); LYMPH # 1.4 (1.2-3.4); LYMPH % 18.4 % (20.0-51.0); MEAN CELL VOLUME 92 fl (80.0-100.0); MEAN CORPUSCULAR HEMOGLOBIN 30 pg (27.0-31.0); MEAN CORPUSCULAR HGB CONC 32 g/dl (33.0-37.0); MEAN PLATELET VOLUME 10.8 fl (7.4-10.4); MONO # 0.7 (0.1-0.6); MONO % 8.7 % (1.7-9.3); PLATELET COUNT 244 K/mm3 (130-400); RED BLOOD COUNT 4.57 M/mm3 (4.10-5.30); REDCELL DISTRIBUTION WIDTH-CV 12.9 % (11.5-14.5)
[2019-12-30 12:02] LABS: ALBUMIN 3.9 gm/dL (3.5-5.0); BILIRUBIN,TOTAL 0.4 mg/dL (0.0-1.0); CHOLESTEROL RISK RATIO 5.8; CREATININE, serum 1.45 (0.52-1.25); POTASSIUM 4.7 mmol/L (3.4-5.0); TOTAL PROTEIN 6.9 gm/dL (6.4-8.2)
[2019-12-30 12:30] LABS: THYROID STIMULATING HORMONE 0.839 uIU/mL (0.465-4.680)
== END ==
LOC: ZCOL.LAB 11:22
PROVIDERS: Family Medicine
DX: I13.0 Hypertensive heart and chronic kidney disease with heart failure and stage 1 through stage 4 chronic kidney disease, or unspecified chronic kidney disease (principal); N18.3 Chronic kidney disease, stage 3 (moderate); E11.22 Type 2 diabetes mellitus with diabetic chronic kidney disease; E03.9 Hypothyroidism, unspecified; E55.9 Vitamin D deficiency, unspecified; R80.9 Proteinuria, unspecified

== ENCOUNTER → 2020-01-28 | Outpatient (CLI) | payer MEDICARE, BC, MEDICAID ==
[2020-01-28 16:06] LABS: CALCIUM 9.5 mg/dL (8.4-10.2); CREATININE, serum 1.41 (0.52-1.25); POTASSIUM 4.9 mmol/L (3.4-5.0)
== END ==
LOC: ZCOL.LAB 15:54
PROVIDERS: Family Medicine
DX: I13.0 Hypertensive heart and chronic kidney disease with heart failure and stage 1 through stage 4 chronic kidney disease, or unspecified chronic kidney disease (principal)

== ENCOUNTER → 2020-07-01 | Outpatient (CLI) | payer MEDICARE, BC, MEDICAID ==
[2020-07-01 12:47] LABS: BASO # 0.1 (0.0-0.2); BASO % 0.7 % (0.0-2.0); EOS # 0.5 (0.0-0.7); HEMOGLOBIN 11.4 g/dl (12.5-16.0); LYMPH # 1.7 (1.2-3.4); LYMPH % 18.8 % (20.0-51.0); MEAN CELL VOLUME 92 fl (80.0-100.0); MEAN CORPUSCULAR HEMOGLOBIN 29 pg (27.0-31.0); MEAN CORPUSCULAR HGB CONC 32 g/dl (33.0-37.0); MEAN PLATELET VOLUME 10.7 fl (7.4-10.4); MONO # 0.7 (0.1-0.6); MONO % 8.1 % (1.7-9.3); PLATELET COUNT 291 K/mm3 (130-400); RED BLOOD COUNT 3.92 M/mm3 (4.10-5.30); REDCELL DISTRIBUTION WIDTH-CV 13.2 % (11.5-14.5)
[2020-07-01 12:48] LABS: HEMATOCRIT 35.9 % (37.0-47.0)
[2020-07-01 13:06] LABS: ALBUMIN 3.5 gm/dL (3.5-5.0); BILIRUBIN,TOTAL 0.4 mg/dL (0.0-1.0); CALCIUM 9.4 mg/dL (8.4-10.2); CHOLESTEROL RISK RATIO 5.4; CREATININE, serum 1.39 (0.52-1.25); POTASSIUM 5.2 mmol/L (3.4-5.0); TOTAL PROTEIN 6.3 gm/dL (6.4-8.2)
[2020-07-01 19:31] LABS: COLLECTION METHOD CLEAN CATCH
[2020-07-01 19:53] LABS: PH 5 (5-8); SQUAMOUS EPITHELIAL 0-2 /hpf; URINE APPEARANCE Hazy; URINE BACTERIA Rare /hpf; URINE BILIRUBIN Negative (NEGATIVE); URINE BLOOD Negative (NEGATIVE); URINE COLOR Yellow; URINE GLUCOSE Negative (NEGATIVE); URINE KETONE Negative (NEGATIVE); URINE LEUKOCYTE ESTERASE Negative (NEGATIVE); URINE NITRATE Negative (NEGATIVE); URINE PROTEIN(semi-quant) 1+ (NEGATIVE); URINE RBC 0-2 /hpf; URINE UROBILINOGEN Negative (NEGATIVE)
== END ==
LOC: ZCOL.LAB 11:49
PROVIDERS: Family Medicine
DX: N18.30 Chronic kidney disease, stage 3 unspecified (principal); E11.22 Type 2 diabetes mellitus with diabetic chronic kidney disease; E78.5 Hyperlipidemia, unspecified; N39.0 Urinary tract infection, site not specified

== ENCOUNTER → 2020-08-16 | Outpatient (CLI) | payer MEDICARE, BC, MEDICAID ==
[2020-08-16 08:32] LABS: CALCIUM 9.3 mg/dL (8.4-10.2); CREATININE, serum 1.47 (0.52-1.25); POTASSIUM 4.5 mmol/L (3.4-5.0)
== END ==
LOC: ZCOL.LAB 07:27
PROVIDERS: Family Medicine
DX: E78.5 Hyperlipidemia, unspecified (principal)

== ENCOUNTER → 2020-08-27 | Outpatient (CLI) | payer MEDICARE, BC, MEDICAID ==
[2020-08-27 17:07] LABS: COLLECTION METHOD CATHETER
[2020-08-27 17:22] LABS: MUCOUS Present /lpf; PH 5 (5-8); URINE APPEARANCE Hazy; URINE BACTERIA None Seen /hpf; URINE BILIRUBIN Negative (NEGATIVE); URINE BLOOD Negative (NEGATIVE); URINE COLOR Yellow; URINE GLUCOSE Negative (NEGATIVE); URINE KETONE Negative (NEGATIVE); URINE LEUKOCYTE ESTERASE Negative (NEGATIVE); URINE NITRATE Negative (NEGATIVE); URINE PROTEIN(semi-quant) 2+ (NEGATIVE); URINE RBC 0-2 /hpf; URINE UROBILINOGEN Negative (NEGATIVE)
== END ==
LOC: ZCOL.LAB 16:30
PROVIDERS: Family Medicine
DX: N39.0 Urinary tract infection, site not specified (principal)

== ENCOUNTER → 2020-10-06 | Outpatient (CLI) | payer MEDICARE, BC, MEDICAID ==
[2020-10-06 13:43] LABS: CALCIUM 9.5 mg/dL (8.4-10.2); CREATININE, serum 1.59 (0.52-1.25); POTASSIUM 5.6 mmol/L (3.4-5.0)
== END ==
LOC: ZCOL.LAB 13:13
PROVIDERS: Family Medicine
DX: E78.5 Hyperlipidemia, unspecified (principal)

== ENCOUNTER → 2021-07-15 | Outpatient (CLI) | payer MEDICARE, BC, MEDICAID ==
[2021-07-16 08:16] LABS: ALBUMIN 3.1 gm/dL (3.4-4.8); BILIRUBIN,TOTAL 0.3 mg/dL (0.2-1.2); CREATININE, serum 1.51 mg/dL (0.57-1.11); POTASSIUM 5.3 mmol/L (3.5-4.5); TOTAL PROTEIN 6.5 gm/dL (6.2-8.1)
[2021-07-16 08:22] LABS: BASO # 0.1 K/mm3 (0.0-0.2); BASO % 0.7 % (0.0-2.0); EOS # 0.4 K/mm3 (0.0-0.7); EOS % 3.2 % (0.0-4.0); GRAN # 9.6 K/mm3 (1.4-6.5); GRAN % 79.2 % (42.2-75.2); HEMATOCRIT 38.2 % (37.0-47.0); HEMOGLOBIN 11.5 g/dl (12.5-16.0); LYMPH # 1.2 K/mm3 (1.2-3.4); MEAN CELL VOLUME 87 fl (80.0-100.0); MEAN CORPUSCULAR HEMOGLOBIN 26 pg (27-31); MEAN CORPUSCULAR HGB CONC 30 g/dl (33.0-37.0); MEAN PLATELET VOLUME 11.6 fl (7.4-10.4); MONO # 0.8 K/mm3 (0.1-0.6); MONO % 6.4 % (1.7-9.3); PLATELET COUNT 381 K/mm3 (130-400); RED BLOOD COUNT 4.39 M/mm3 (4.10-5.30); REDCELL DISTRIBUTION WIDTH-CV 14.6 % (11.5-14.5)
== END ==
LOC: ZCOL.LAB 23:00
PROVIDERS: Family Medicine
DX: E78.5 Hyperlipidemia, unspecified (principal); E11.22 Type 2 diabetes mellitus with diabetic chronic kidney disease

== ENCOUNTER → 2021-07-16 | Outpatient (CLI) | payer MEDICARE, BC, MEDICAID ==
[2021-07-16 19:11] LABS: COLLECTION METHOD CLEAN CATCH
[2021-07-16 19:28] LABS: MUCOUS Present (NOT PRESENT); PH 6 (5-8); SQUAMOUS EPITHELIAL 0-2 /hpf (0-10); URINE APPEARANCE Clear (CLEAR/HAZY); URINE BACTERIA Rare /hpf (NONE SEEN); URINE BILIRUBIN Negative (NEGATIVE); URINE BLOOD Negative (NEGATIVE); URINE COLOR Straw (YELLOW); URINE GLUCOSE Negative (NEGATIVE); URINE KETONE Negative (NEGATIVE); URINE LEUKOCYTE ESTERASE Trace (NEGATIVE); URINE NITRATE Negative (NEGATIVE); URINE PROTEIN(semi-quant) 1+ (NEGATIVE); URINE RBC 0-2 /hpf (0-2); URINE UROBILINOGEN Negative (NEGATIVE)
== END ==
LOC: ZCOL.LAB 18:32
PROVIDERS: Family Medicine
DX: N39.0 Urinary tract infection, site not specified (principal)

== ENCOUNTER → 2022-03-08 | Outpatient (CLI) | payer MEDICARE, BC, MEDICAID ==
[~2022-03-08] MED LIST changes: +COLACE 100100 MG/CAP PO; +CYMBALTA 60MG60 MG PO; +FLAXSEED OIL1000 MG PO; +K-DUR 10 MEQ T10 MEQ PO; +MAG-OX 400400 MG/TAB PO; +MIRALAX PA17 GM/Dose PO; +NEURONTIN300 MG/CAP PO; +PEPCID 20MG TAB20 MG PO; +PRINIVIL10 MG PO; +THE MEDICINE SH1 POW; +VITAMIN B12 1541 TAB PO; +VITAMIN D31000 I1 PO
[2022-03-08 16:42] LABS: BASO # 0.1 K/mm3 (0.0-0.2); BASO % 0.5 % (0.0-2.0); EOS # 0.7 K/mm3 (0.0-0.7); EOS % 4.5 % (0.0-4.0); GRAN # 11.4 K/mm3 (1.4-6.5); GRAN % 72.8 % (42.2-75.2); HEMATOCRIT 24.6 % (37.0-47.0); LYMPH # 2.2 K/mm3 (1.2-3.4); LYMPH % 14.3 % (20.0-51.0); MEAN CELL VOLUME 71 fl (80.0-100.0); MEAN CORPUSCULAR HEMOGLOBIN 19 pg (27-31); MEAN CORPUSCULAR HGB CONC 27 g/dl (33.0-37.0); MEAN PLATELET VOLUME 10.5 fl (7.4-10.4); MONO # 1.2 K/mm3 (0.1-0.6); MONO % 7.4 % (1.7-9.3); PLATELET COUNT 591 K/mm3 (130-400); RED BLOOD COUNT 3.48 M/mm3 (4.10-5.30); REDCELL DISTRIBUTION WIDTH-CV 17.4 % (11.5-14.5)
[2022-03-08 16:49] LABS: HEMOGLOBIN 6.6 g/dl (12.5-16.0)
[2022-03-08 16:52] LABS: ALBUMIN 2.9 gm/dL (3.4-4.8); BILIRUBIN,TOTAL 0.2 mg/dL (0.2-1.2); CALCIUM 9.1 mg/dL (8.4-10.2); CREATININE, serum 1.62 mg/dL (0.57-1.11); POTASSIUM 5.7 mmol/L (3.5-4.5); TOTAL PROTEIN 7.1 gm/dL (6.2-8.1)
== END ==
LOC: ZCOL.LAB 15:58
PROVIDERS: Family Medicine
DX: E11.22 Type 2 diabetes mellitus with diabetic chronic kidney disease (principal); E87.6 Hypokalemia; E11.40 Type 2 diabetes mellitus with diabetic neuropathy, unspecified; Z79.899 Other long term (current) drug therapy

== ENCOUNTER → 2022-03-11 | Outpatient (CLI) | payer MEDICARE, BC, MEDICAID | LOC: ZCOL.LAB 07:12 | DX: R71.0 Precipitous drop in hematocrit (principal) ==

== ENCOUNTER 2022-03-21 13:00 | Outpatient (RCR) | payer MEDICARE, BC, MEDICAID ==
[2022-03-14 14:52] VITALS: BP 115/71; PULSE 90; TEMP 98.1
[2022-03-17 14:00] VITALS: BP 119/64; PULSE 86; TEMP 97.6
--- NOTE | 2022-03-17 16:04 | NUR ---
Pt transferred from recliner to wheelchair with x1 assist. IV site wrapped with coban. Awaiting arrival of [facility] transport.
[~2022-03-21] VITALS: Ht 165.1 cm; Wt 88.4 kg
[2022-03-21 14:05] VITALS: BP 137/79; PULSE 96; TEMP 97.7
[2022-03-21 14:09] LABS: MEAN CELL VOLUME 74 fl (80.0-100.0); MEAN CORPUSCULAR HGB CONC 27 g/dl (33.0-37.0); MEAN PLATELET VOLUME 10.2 fl (7.4-10.4); PLATELET COUNT 519 K/mm3 (130-400); RED BLOOD COUNT 3.77 M/mm3 (4.10-5.30); REDCELL DISTRIBUTION WIDTH-CV 24.1 % (11.5-14.5)
[2022-03-21 14:11] LABS: HEMATOCRIT 27.8 % (37.0-47.0); HEMOGLOBIN 7.5 g/dl (12.5-16.0); MEAN CORPUSCULAR HEMOGLOBIN 20 pg (27-31)
== END 2022-03-21 16:47 ==
LOC: EUO 13:00
PROVIDERS: Family Medicine
DX: D50.9 Iron deficiency anemia, unspecified (principal)
CPT/HCPCS: J1756; J7050

== ENCOUNTER 2022-04-22 22:03 | Inpatient (IN) | payer MEDICARE, BC, MEDICAID ==
[~2022-04-22] VITALS: Ht 167.6 cm; Wt 88.5 kg
[2022-04-22 22:22] LABS: COLLECTION METHOD CATHETER
[2022-04-22 22:29] LABS: URINE APPEARANCE Clear (CLEAR/HAZY); URINE BLOOD Negative (NEGATIVE); URINE COLOR Yellow (YELLOW); URINE GLUCOSE Negative (NEGATIVE); URINE KETONE Negative (NEGATIVE); URINE NITRATE Negative (NEGATIVE); URINE PROTEIN(semi-quant) 2+ (NEGATIVE); URINE UROBILINOGEN 0.2 E.U/dL (0.2-1.0)
[2022-04-22 22:30] LABS: SQUAMOUS EPITHELIAL None Seen /hpf (0-10); URINE BACTERIA Rare /hpf (NONE SEEN); URINE RBC 0-2 /hpf (0-2)
[2022-04-22 23:04] LABS: BASO # 0.1 K/mm3 (0.0-0.2); BASO % 0.5 % (0.0-2.0); EOS # 0.5 K/mm3 (0.0-0.7); EOS % 2.8 % (0.0-4.0); GRAN # 14.2 K/mm3 (1.4-6.5); GRAN % 82.5 % (42.2-75.2); LYMPH # 1.4 K/mm3 (1.2-3.4); LYMPH % 7.8 % (20.0-51.0); MEAN CELL VOLUME 77 fl (80.0-100.0); MEAN CORPUSCULAR HGB CONC 29 g/dl (33.0-37.0); MONO % 5.8 % (1.7-9.3); PLATELET COUNT 491 K/mm3 (130-400); RED BLOOD COUNT 3.67 M/mm3 (4.10-5.30); REDCELL DISTRIBUTION WIDTH-CV 24.1 % (11.5-14.5)
[2022-04-22 23:06] LABS: HEMATOCRIT 28.2 % (37.0-47.0); HEMOGLOBIN 8.2 g/dl (12.5-16.0); MEAN CORPUSCULAR HEMOGLOBIN 22 pg (27-31)
[2022-04-22 23:24] LABS: ALANINE AMINOTRANSFERASE 16 U/L (0-55); ALBUMIN 2.7 gm/dL (3.4-4.8); ALKALINE PHOSPHATASE 126 U/L (40-150); ANION GAP 12 mmol/L (7-16); AST,SGOT 10 U/L (5-34); BILIRUBIN,TOTAL 0.2 mg/dL (0.2-1.2); BLOOD UREA NITROGEN 40 mg/dL (10-20); CALCIUM 9.7 mg/dL (8.4-10.2); CARBON DIOXIDE 24 mmol/L (23-31); CHLORIDE 104 mmol/L (98-107); CREATININE, serum 2.01 mg/dL (0.57-1.11); GLUCOSE 209 mg/dL (70-99); POTASSIUM 5.6 mmol/L (3.5-4.5); SODIUM 140 mmol/L (136-145); TOTAL PROTEIN 7.3 gm/dL (6.2-8.1)
[2022-04-22 23:32] LABS: TROPONIN-I < 0.010 ng/mL (0.00-0.033)
[2022-04-23 00:27] LABS: PROTHROMBIN TIME 11.9 SECONDS (9.7-12.8)
--- NOTE | 2022-04-23 00:43 | NUR ---
PT ADMITTED TO ROOM 345 PER CART FROM ER. ER NURSE REPORTED HAS NOT RECEIVED MED LIST FAX YET FROM [facility]. SHE SESAR BRING THEM UP WHEN RECEIVED. FAMILY AT BEDSIDE. VERY SUPPORTIVE. PT ALERT AND ORIENTED. PT ORIENTED TO ROOM AND STAFF. WILL V EXPLAIN PLAN OF CARE. CALL LIGHT IN REACH. BED ALRM SET. HIGH FALL RISK.
[2022-04-23 00:56] VITALS: BP 177/66; PULSE 82; TEMP 98.2
--- NOTE | 2022-04-23 01:28 | NUR ---
PT RECEIVED MS 2MG IV FOR LT HIP PAIN. LEVEL 8. IV NS @100CC/HR TO LT WRIST IV. ICE PACK TO LT HIP.
--- NOTE | 2022-04-23 02:00 | NUR ---
PT ACCIDENTALLY PULLED LT WRIST IV OUT. SHE IS A VERY DIFFICULT START. [facility] PROGRAM CONSULTANT STARTED 22G TO LT FA. IVF'S RESTARTED.
--- NOTE | 2022-04-23 02:10 | NUR ---
PT RESTING NOW. NO DISTRESS.
[2022-04-23 06:36] LABS: BASO # 0.1 K/mm3 (0.0-0.2); BASO % 0.6 % (0.0-2.0); EOS # 0.2 K/mm3 (0.0-0.7); EOS % 1.5 % (0.0-4.0); GRAN # 11.3 K/mm3 (1.4-6.5); GRAN % 78.4 % (42.2-75.2); LYMPH # 1.7 K/mm3 (1.2-3.4); LYMPH % 11.9 % (20.0-51.0); MEAN CELL VOLUME 78 fl (80.0-100.0); MEAN CORPUSCULAR HGB CONC 29 g/dl (33.0-37.0); MEAN PLATELET VOLUME 10.3 fl (7.4-10.4); MONO # 0.9 K/mm3 (0.1-0.6); MONO % 6.3 % (1.7-9.3); PLATELET COUNT 459 K/mm3 (130-400); RED BLOOD COUNT 3.99 M/mm3 (4.10-5.30); REDCELL DISTRIBUTION WIDTH-CV 24.5 % (11.5-14.5)
[2022-04-23 06:37] LABS: MEAN CORPUSCULAR HEMOGLOBIN 23 pg (27-31)
[2022-04-23 08:00] VITALS: BP 143/75; PULSE 100; TEMP 97.4
[2022-04-23 08:04] LABS: ALBUMIN 2.6 gm/dL (3.4-4.8); BILIRUBIN,TOTAL 0.4 mg/dL (0.2-1.2); CALCIUM 9.4 mg/dL (8.4-10.2); CREATININE, serum 1.8 mg/dL (0.57-1.11); MAGNESIUM 2.2 mg/dL (1.6-2.6); POTASSIUM 5.3 mmol/L (3.5-4.5); TOTAL PROTEIN 7.3 gm/dL (6.2-8.1)
--- NOTE | 2022-04-23 10:16 | NUR ---
SW met with patient to complete intake. Patient states that she lives at [facility] here in [facility]. Next of kin is daughter in law Carol Hughes [phone]. DPOA/HC is Troy Hughes Jr [phone] and Jerry Campbell [phone]. Patient states that she utilizes a walker and receives assistance with ADLs at facility. PCP is Dr. Valladares Patient states her plan is to return back to [facility] upon DC. AMIE will continue to follow. DC plan: back to [facility]
[2022-04-23 12:57] VITALS: BP 151/70; PULSE 101; TEMP 98.7
[2022-04-23 16:14] VITALS: BP 135/53; PULSE 101; TEMP 98.6
[2022-04-23] MEDS ORDERED: NEURONTIN300 MG/CAP PO (16:55)
[2022-04-23] MEDS ORDERED: NEURONTIN600 MG/TAB PO (16:55)
[2022-04-23] MEDS ORDERED: NOVOLOG FLEX100 U/ML SQ (16:56)
[2022-04-23] MEDS ORDERED: PREPARATIO1 SUPP.REC RC (16:57)
[2022-04-23] MEDS ORDERED: FLONASEALLERGY NS (16:57)
[2022-04-23] MEDS ORDERED: LANTUS100 U/ML SQ (16:58)
[2022-04-23] MEDS ORDERED: DULCOLAX TAB5 MG PO (16:58)
[2022-04-23] MEDS ORDERED: DULCOLAX S10 MG/SUPP RC (16:59)
[2022-04-23] MEDS ORDERED: ASPERCREME85G TP (17:00)
[2022-04-23] MEDS ORDERED: ALBUTEROL0.83 MG/ML IH (17:00)
--- NOTE | 2022-04-23 17:36 | NUR ---
PATIENT ALERT TO SELF, APPEARS TO HAVE INTERMITTENT CONFUSION. PATIENT REPORTS PAIN 9/10, REQUESTS PAIN MEDICATION. ICE TO LEFT HIP. PATIENT WITH IV TO LEFT FA. MEZA TO DD WITH PALE YELLOW URINE. PATIENT RESTING IN BED WITH CALL LIGHT NEAR.
--- NOTE | 2022-04-23 21:00 | NUR ---
PT RESTING IN BED. O2 1L NC. WANTED PAIN MED. THEN DECLINED. IVF'S INFUSINGTO LT F/A. MEAZ DRAINING CLEAR YELLOW URINE. CALL LIGHT IN REACH.
[2022-04-23 23:37] VITALS: BP 149/61; PULSE 92; TEMP 98.3
[2022-04-24] VITALS (14 sets, daily range): BP systolic 121–159; BP diastolic 55–82; PULSE 52–113; TEMP 97.5–98.2
--- NOTE | 2022-04-24 00:42 | NUR ---
NOTIFIED Ana Cristina GILES OF K+ RESULTS WHICH JUST RESULTED.
--- NOTE | 2022-04-24 01:53 | NUR ---
GAVE INSULIN 10UNITS/ CALCIUM GLUCONATE/D50 ORDERED. PT HAVING LT HIP PAIN. GAVE MS 2MG. REPOSITIONED. CALL LIGHT IN REACH. BED ALARM SET.
[2022-04-24 07:18] LABS: MEAN CELL VOLUME 79 fl (80.0-100.0); MEAN CORPUSCULAR HGB CONC 29 g/dl (33.0-37.0); MEAN PLATELET VOLUME 10.4 fl (7.4-10.4); PLATELET COUNT 418 K/mm3 (130-400); RED BLOOD COUNT 3.66 M/mm3 (4.10-5.30)
[2022-04-24 07:19] LABS: ALBUMIN 2.5 gm/dL (3.4-4.8); CALCIUM 9.4 mg/dL (8.4-10.2); CREATININE, serum 1.52 mg/dL (0.57-1.11); HEMATOCRIT 28.8 % (37.0-47.0); HEMOGLOBIN 8.3 g/dl (12.5-16.0); MEAN CORPUSCULAR HEMOGLOBIN 23 pg (27-31); PHOSPHOROUS 3.9 mg/dL (2.3-4.7); POTASSIUM 4.9 mmol/L (3.5-4.5)
--- NOTE | 2022-04-24 07:19 | NUR ---
BEDSIDE REPORT DONE. PATIENT RESTING IN BED. CALL LIGHT IN REACH.
--- NOTE | 2022-04-24 10:30 | NUR ---
AMIE clarified with Stacey at [facility] that the patient is a long-term care resident with them. AMIE attempted to contact the patient's son, Jerry, to review discharge plan. AMIE left him a voicemail. AMIE contacted the patient's other son, Mick, to review the plan. Mick states that he lives in [place], so his brother typically takes care of these things, but he confirms the plan would be for him mother to return back to [facility] upon discharge. AMIE faxed updates to [facility]. *Discharge plan: [facility]*
--- NOTE | 2022-04-24 11:09 | NUR ---
first dose of morphine was at 854am but charted late since Left arm IV wasnt wortking properly so even though I gave it to her at 854ish this morphine the iv inferated. spoke with emy, she place an order for Picc. infrom Ken that the morphine was given at 854ish this morning and its due for another dose. she said to go head and give to her. 0.5ml/2mg was given via picc line. patient was crying with transfer for her arianaan. surgery will be this afternoon.
--- NOTE | 2022-04-24 11:29 | NUR ---
ASSESSMENT DONE. PATIENT CONFUSED AT TIMES BUT ABLE TO ANSWER HER NAME. LEXISCAN WILL BE TODAY
--- NOTE | 2022-04-24 12:14 | NUR ---
PATIENT CAME BACK FROM [facility] AT 1214.PATIENT CONFUSED BUT ALERT
--- NOTE | 2022-04-24 12:50 | NUR ---
Spoke with ALEX Ugalde with Dr. Cedeno, he reports patient is cleared for surgery with moderate risk. This was passed on to TISHA Larsen with hospitalist and Kyara OR charge nurse. Updated patient and son that she was cleared for surgery and that we were waiting on an OR time. Questions answered.
--- NOTE | 2022-04-24 14:08 | NUR ---
Morphine given for complaints of pain. Pt reports minimal pain when the patient is still, but 'extreme' pain with movements.
--- NOTE | 2022-04-24 17:59 | NUR ---
PATIENT ARRIVED AT [facility] FROM THE OR. PATIENT HAD A HIP SX ON LEFT SIDE. SMALL INCISION PER RN NURSE. PATIENT RECEIVED MEDICATION AFTER THE PREDUCDURE DUE TO INCREASE PAIN. NOW THE PATIENT IS RESTING WITH NO SIGN OR PAIN. NO GRIMACING NOTED. PATIENT SLIGHTLY SNORING. CLEAR DIET AT THIS TIME. RN NURSE INFORM THAT ONE OF THE INCISION WAS DRAINAGED SO SHE CHANGE THE DRESS TO A ABD PAD AND TAPE IT UP. PATIENT ON TELE RIGHT NOW WITH HR IN THE HIGH 90S. BLOOD PRESSURE IN [place]. 121/62.WLL CONTINUE TO MONITOR
--- NOTE | 2022-04-24 18:47 | NUR ---
PATIENT HAS BEEN RESTING SINCE SURGERY. PO TYLENOL WAS NOT GIVEN SINCE PATIENT WAS TIRED/SLEEP AND UNABLE TO OPEN MONTH. HELD MEDICATION
--- NOTE | 2022-04-24 19:41 | NUR ---
PATIENT CONTINUE TO REST AT THIS TIME. MEZA CONTINUE TO FLOW. NO DRAINAGED NOTED ON SX SITE
[2022-04-25] VITALS (13 sets, daily range): BP systolic 104–117; BP diastolic 38–60; PULSE 74–98; TEMP 97.3–98.6
--- NOTE | 2022-04-25 06:21 | NUR ---
pt given morphine x2 and norco x2 for pain in left hip, turned q2h, dahl patent, secure, IVF infusing per PICC @ 100cc/hr. taking small amts of po fluids, wants to try regular breakfast, ADA diet ordered. required SSI @ midnight. requiring 1-2L O2 per NC to keep sats >90%, attempted to wean to RA x2, dropped to mid 80s.
[2022-04-25 06:44] LABS: HEMATOCRIT 22.5 % (37.0-47.0)
[2022-04-25 06:46] LABS: HEMOGLOBIN 6.3 g/dl (12.5-16.0)
--- NOTE | 2022-04-25 07:10 | NUR ---
TISHA Larsen notified of hemoglobin
--- NOTE | 2022-04-25 09:44 | NUR ---
Pt is AB+ blood type. Blood bank does not have AB+, wants to have AB+ ordered, notified blood bank
[2022-04-25 10:25] LABS: CALCIUM 8.5 mg/dL (8.4-10.2); CREATININE, serum 1.89 mg/dL (0.57-1.11); POTASSIUM 5.4 mmol/L (3.5-4.5)
[2022-04-25 13:35] LABS: HEMATOCRIT 20.2 % (37.0-47.0); HEMOGLOBIN 5.7 g/dl (12.5-16.0)
--- NOTE | 2022-04-25 13:35 | NUR ---
AMIE faxed updates to Stacey at [facility].
--- NOTE | 2022-04-25 13:37 | NUR ---
Discussed low hemoglobin with TISHA Hankins as well as pt having some symptoms of low value
--- NOTE | 2022-04-25 15:22 | NUR ---
Blood started. Pt is very sleepy. She does wake easily, but then quickly goes back to sleep. She does answer questions appropriately.
--- NOTE | 2022-04-25 18:02 | NUR ---
Pt has done okay this afternoon. She is been very sleepy and weak. She does wake easily, but continues to fall back asleep. Pt did receive one unit PRBC, no signs of reaction.
[2022-04-25 20:02] LABS: HEMATOCRIT 24.1 % (37.0-47.0); HEMOGLOBIN 7.2 g/dl (12.5-16.0)
[2022-04-26] VITALS (11 sets, daily range): BP systolic 114–133; BP diastolic 39–66; PULSE 73–86; TEMP 97.4–98.9
--- NOTE | 2022-04-26 01:38 | NUR ---
CALLED BY SURGICAL UNIT REGARDING PT ON ROOM AIR AND THAT SHE WAS DESATURATING TO 85%. THIS FORMS DESIGNER PRESENTED TO ROOM TO ASSESS PT. PT WAS 83-85% ON RA. SLOWLY INCREASED O2. WHEN ON 1L SATS WERE 89%-90% INCREASED TO 1.5 AND SATS INCREASED TO 92%-94%. PT TOLERATING WELL. REPORTED TO RN CARING FOR PT THAT I PLACED HER ON 1.5L AT THIS TIME LEFT ROOM AT 0042.
[2022-04-26 06:43] LABS: BASO # 0.1 K/mm3 (0.0-0.2); BASO % 0.6 % (0.0-2.0); EOS # 0.6 K/mm3 (0.0-0.7); EOS % 4.3 % (0.0-4.0); GRAN # 9.9 K/mm3 (1.4-6.5); GRAN % 77.9 % (42.2-75.2); LYMPH # 1.1 K/mm3 (1.2-3.4); LYMPH % 8.3 % (20.0-51.0); MEAN CELL VOLUME 80 fl (80.0-100.0); MEAN CORPUSCULAR HGB CONC 29 g/dl (33.0-37.0); MEAN PLATELET VOLUME 10.8 fl (7.4-10.4); MONO % 7.9 % (1.7-9.3); PLATELET COUNT 345 K/mm3 (130-400); RED BLOOD COUNT 2.82 M/mm3 (4.10-5.30); REDCELL DISTRIBUTION WIDTH-CV 21.6 % (11.5-14.5)
[2022-04-26 06:54] LABS: HEMATOCRIT 22.6 % (37.0-47.0); HEMOGLOBIN 6.6 g/dl (12.5-16.0); MEAN CORPUSCULAR HEMOGLOBIN 23 pg (27-31)
[2022-04-26 06:59] LABS: CALCIUM 8.1 mg/dL (8.4-10.2); CREATININE, serum 2.04 mg/dL (0.57-1.11); MAGNESIUM 1.8 mg/dL (1.6-2.6); PHOSPHOROUS 5.3 mg/dL (2.3-4.7)
--- NOTE | 2022-04-26 07:09 | NUR ---
Cr GILES notified of low hemoglobin
--- NOTE | 2022-04-26 10:31 | NUR ---
Pt doing okay this morning. She is more alert than she was yesterday. Dressing to her left hip removed and aquacell applied. PT and OT worked with pt, they were able to stand her for a short time. Pt did not eat much for breakfast. Pt is alert, but is slow to respond. Pt has blister to her left heel, pt reports that she just noticed last night.
--- NOTE | 2022-04-26 13:40 | NUR ---
SW contacted and faxed updates to Stacey at [facility].
--- NOTE | 2022-04-26 13:54 | NUR ---
Pt has been resting all afternoon. She was pretty sleepy late morning. I did get her to wake long enough to eat some lunch. Pt has been tolerating the blood transfusion with no signs of reaction. Pt has complaints of pain in her feet. Feet/legs repositioned. Bed alarm on, call light within reach
--- NOTE | 2022-04-26 14:36 | NUR ---
Pt O2 mid 80s on room air. Pt placed back on 1L per NC. Pt does no comprehend how to do the IS properly.
[2022-04-26 15:55] LABS: HEMATOCRIT 26.5 % (37.0-47.0); HEMOGLOBIN 7.9 g/dl (12.5-16.0)
--- NOTE | 2022-04-26 18:26 | NUR ---
Pt remained drowsy the rest of the day. She does wake easily. Scheduled Tylenol given. Pt was able to feed herself today, yesterday she stated that she could not. Output is more yellow now. Pt continues to not be able to comprehend using the IS
[2022-04-27] VITALS (7 sets, daily range): BP systolic 115–165; BP diastolic 46–85; PULSE 71–95; TEMP 97.5–98.9
[2022-04-27 05:03] LABS: BASO # 0.1 K/mm3 (0.0-0.2); BASO % 0.6 % (0.0-2.0); EOS # 0.6 K/mm3 (0.0-0.7); EOS % 5.5 % (0.0-4.0); GRAN # 8.2 K/mm3 (1.4-6.5); LYMPH # 0.9 K/mm3 (1.2-3.4); LYMPH % 8.4 % (20.0-51.0); MEAN CELL VOLUME 84 fl (80.0-100.0); MEAN CORPUSCULAR HGB CONC 30 g/dl (33.0-37.0); MEAN PLATELET VOLUME 9.9 fl (7.4-10.4); MONO # 0.9 K/mm3 (0.1-0.6); MONO % 8.3 % (1.7-9.3); PLATELET COUNT 317 K/mm3 (130-400); RED BLOOD COUNT 3.03 M/mm3 (4.10-5.30)
[2022-04-27 05:11] LABS: HEMATOCRIT 25.4 % (37.0-47.0); HEMOGLOBIN 7.5 g/dl (12.5-16.0); MEAN CORPUSCULAR HEMOGLOBIN 25 pg (27-31)
[2022-04-27 05:24] LABS: ALBUMIN 1.9 gm/dL (3.4-4.8); CALCIUM 8.5 mg/dL (8.4-10.2); CREATININE, serum 1.8 mg/dL (0.57-1.11); MAGNESIUM 1.7 mg/dL (1.6-2.6); PHOSPHOROUS 3.4 mg/dL (2.3-4.7); POTASSIUM 4.7 mmol/L (3.5-4.5)
--- NOTE | 2022-04-27 07:44 | NUR ---
Received shift report from the night warehouse selector nurse, RN
--- NOTE | 2022-04-27 10:23 | NUR ---
The patient's hemoglobin trended down slightly. The team is checking a stool occult. She may be able to discharge in the next 24-48 hours. AMIE notified and faxed updates to Stacey at [facility]. *Discharge plan: [facility]*
--- NOTE | 2022-04-27 11:01 | NUR ---
Patient awake in a sitting position in bed eating breakfast. IVF infusing and dahl draining clear yellow urine in the bag. Patient denies any distress at this time. Scheduled medication administered without difficulty.Left hip dressing dry and intact. Call main place within reach.
--- NOTE | 2022-04-27 11:12 | NUR ---
Patient reports of pain at left hip. Patient rated pain level 7/10. Patient describes pain as burning. Wahoo administered . Will reassess pain level
[2022-04-27 16:23] LABS: HEMATOCRIT 25.9 % (37.0-47.0); HEMOGLOBIN 7.7 g/dl (12.5-16.0)
--- NOTE | 2022-04-27 18:34 | NUR ---
Patient resting in bed quietly watching tV. Reposition to the left side. Dressing on coccyx. Call main place within reach.
[2022-04-27 20:31] LABS: HEMATOCRIT 24.5 % (37.0-47.0); HEMOGLOBIN 7.5 g/dl (12.5-16.0)
--- NOTE | 2022-04-27 21:42 | NUR ---
PT ASLEEP, EASY TO AROUSE. PT CONFUSED AND ASKED WHERE SHE WAS, REORIENTED. PT DENIES PN. MEDS GIVEN AND ASSESSMENT COMPLETE. PICC TO KISHORE. VSS AND TELE IN PLACE. MEZA TO PIERRE W YELLOW URINE OUTPUT. FALL PRECAUTIONS IN PLACE. NO NEEDS AT THIS TIME. CALL LIGHT WITHIN REACH.
[2022-04-28] VITALS (7 sets, daily range): BP systolic 119–147; BP diastolic 39–66; PULSE 71–87; TEMP 97.8–98.2
--- NOTE | 2022-04-28 04:34 | NUR ---
BLOOD TRANSFUSION STARTED. STAYED W PT FIRST 15 MINUTES, NO COMPLICATIONS.
[2022-04-28 06:28] LABS: MEAN CELL VOLUME 85 fl (80.0-100.0); MEAN CORPUSCULAR HGB CONC 30 g/dl (33.0-37.0); MEAN PLATELET VOLUME 10.3 fl (7.4-10.4); PLATELET COUNT 311 K/mm3 (130-400); RED BLOOD COUNT 3.27 M/mm3 (4.10-5.30); REDCELL DISTRIBUTION WIDTH-CV 21.1 % (11.5-14.5)
[2022-04-28 06:37] LABS: HEMATOCRIT 27.8 % (37.0-47.0); HEMOGLOBIN 8.2 g/dl (12.5-16.0); MEAN CORPUSCULAR HEMOGLOBIN 25 pg (27-31)
[2022-04-28 06:46] LABS: ALBUMIN 2.1 gm/dL (3.4-4.8); CALCIUM 8.8 mg/dL (8.4-10.2); CREATININE, serum 1.6 mg/dL (0.57-1.11); MAGNESIUM 1.6 mg/dL (1.6-2.6); PHOSPHOROUS 2.7 mg/dL (2.3-4.7); POTASSIUM 4.4 mmol/L (3.5-4.5)
[2022-04-28] MEDS ORDERED: ASPI325T6 PO (07:14)
[2022-04-28] MEDS ORDERED: PROTONIX 40MG T40 MG PO (07:15)
[2022-04-28 07:46] LABS: ANISOCYTOSIS 2+; BAND 9 % (0-10); EOSINOPHIL 3 % (0-4); LYMPHOCYTE 12 % (20.0-51.0); NEUTROPHILS 69 % (42.0-75.2); PLATELET ESTIMATE NORMAL (NORMAL)
--- NOTE | 2022-04-28 07:59 | NUR ---
Received shift report from the maintenance supervisor 2nd shift nurse,RN reporting that patient is received blood transfusion. Will order CBC 1 hour after completion of infusion.
--- NOTE | 2022-04-28 08:07 | NUR ---
Patient resting in bed and alert. Blood transfusion completed. VSS. Patient reposition to sit up in bed for breakfast. Patient denies any discomfort or distress. Dressing on left hip dry and intact.
--- NOTE | 2022-04-28 09:18 | NUR ---
The patient is to discharge today, 04/28, back to [facility] for a skilled stay. Transportation provided by [facility]. SW contacted and updated the patient's son, Ed. Ed is in agreement to the plan and the patient discharging today. No additional needs at this time.
[2022-04-28 09:28] LABS: HEMATOCRIT 29.1 % (37.0-47.0); HEMOGLOBIN 9.1 g/dl (12.5-16.0)
--- NOTE | 2022-04-28 10:13 | NUR ---
Dahl catheter discontinued and telemonitor discontinued per Doctor's order prior discharge to [facility]. Emptied 680cc of urine from dahl bag and patient tolerated the procedure well.
--- NOTE | 2022-04-28 11:33 | NUR ---
Placed a phone call to [facility] to give report the receiving nurse, ROYA. Report given to nurse and has no other questions.
--- NOTE | 2022-04-28 14:56 | NUR ---
Patient discharged to [facility] yesterday.
== END 2022-04-28 14:00 | DRG 481 ==
LOC: COL.ER 22:03 → SURG 23:05
PROVIDERS: Family Medicine; Internal Medicine; Orthopaedic Surgery; Physician Assistant; ADMIT Student in an Organized Health Care Education/Training Program
PROC: 0QS706Z Reposition Left Upper Femur with Intramedullary Internal Fixation Device, Open Approach (ICD-10-PCS; principal; 2022-04-24 11:00)
PROC: 30233N1 Transfusion of Nonautologous Red Blood Cells into Peripheral Vein, Percutaneous Approach (ICD-10-PCS; 2022-04-26)
DX: S72.142A Displaced intertrochanteric fracture of left femur, initial encounter for closed fracture (principal); I69.954 Hemiplegia and hemiparesis following unspecified cerebrovascular disease affecting left non-dominant side; Z68.41 Body mass index [BMI] 40.0-44.9, adult; N17.9 Acute kidney failure, unspecified; I12.9 Hypertensive chronic kidney disease with stage 1 through stage 4 chronic kidney disease, or unspecified chronic kidney disease; E11.22 Type 2 diabetes mellitus with diabetic chronic kidney disease; N18.30 Chronic kidney disease, stage 3 unspecified; E66.01 Morbid (severe) obesity due to excess calories; D50.9 Iron deficiency anemia, unspecified; Z66 Do not resuscitate; D64.89 Other specified anemias; M19.90 Unspecified osteoarthritis, unspecified site; K90.0 Celiac disease; R09.02 Hypoxemia; F41.9 Anxiety disorder, unspecified; E87.5 Hyperkalemia; K59.00 Constipation, unspecified; W18.30XA Fall on same level, unspecified, initial encounter; Y92.122 Bedroom in nursing home as the place of occurrence of the external cause; Z88.5 Allergy status to narcotic agent
CPT/HCPCS: A9284; A9500; C1713; C1751; J0610; J0690; J0696; J1756; J1815; J2250; J2270; J2405; J2704; J2785; J3010; J7030; P9016

== ENCOUNTER 2022-09-15 09:27 | Day surgery (SDC) | payer MEDICARE, MEDICAID ==
[~2022-09-15] VITALS: Ht 165.1 cm; Wt 79.0 kg
[~2022-09-15 09:27] MED LIST changes: +ALBUTEROL0.83 MG/ML IH; +ASPERCREME85G TP; +ASPI325T6 PO; +CLEOCIN HCL300 MG PO; +CYMBALTA 60MG60 MG; +DULCOLAX S10 MG/SUPP RC; +DULCOLAX TAB5 MG PO; +FLONASEALLERGY NS; +GERI-TUSSI100 MG/5 M PO; +IRON TABLETS325 MG PO; +MUCUS RELIEF400 M1 PO; +NOVOLOG 100U100 U/M1 SQ; +NOVOLOG FLEX100 U/ML SQ; +PREPH RC; +PROTONIX 40MG T40 MG PO; +QUALITY CHOIC0.52 GM PO; -THE MEDICINE SH1 POW; +THE MEDICINE SH1 POW PO; +ZYRTEC5 MG PO
[2022-09-15 10:19] VITALS: BP 129/90; PULSE 89; TEMP 97.6
[2022-09-15 12:00] VITALS: BP 114/46; PULSE 96; TEMP 98.7
[2022-09-15 12:15] VITALS: BP 116/52; PULSE 87
[2022-09-15 12:30] VITALS: BP 118/54; PULSE 92
--- NOTE | 2022-09-15 15:35 | NUR ---
1150 IN TO SPEAK WITH FAMILY, PT IN [facility] RECOVERING 1200 PT TO [facility] FROM [facility] S/P EGD/COLONOSCOPY WITH BIOPSY H/O CVA WITH LEFT SIDED WEAKNESS, W/C BOUND, BROUGHT INTO ROOM ON CART AND PLACED ON MONITOR, VSS ON 3L NC. RECEIVED REPORT AND ASSUMED CARE OF PT FROM HERBIE NASSAR AT BEDSIDE 1215 WEANING PT OFF O2. TOLERATING LIQUIDS WELL, DECLINED SOLIDS AT THIS TIME. A&O, NAD, DENIES COMPLAINT. 1220 T/C TO [facility] TO ARRANGE FOR TRANSPORT 1225 IN TO SPEAK TO PT/FAMILY ABOUT DX. EMOTIONAL SUPPORT AND EDUCATION OFFERED AND PROVIDED. PT/FAMILY COPING WELL. 1230 CONTINUING TO WEAN OFF O2. PT HAS REMAINED A&O, NAD, VSS, TOLERATING PO, IS WITHOUT SIGNIFICANT COMPLAINT THRU OUT ENDO STAY IV D/C'D. D/C INSTRUCTIONS, ANY FOLLOW UP REVIEWED AND HANDED TO PT. ALL QUESTIONS AND CONCERNS ADDRESSED TO PT/FAMILY SATISFACTION. PT WAS DRESSED BY STAFF, TRANSFERRED TO PERSONAL WC. 1240 VSS ON RA, CONTINUES TO DENY COMPLAINT. 1245 TAKEN TO EXIT VIA W/C WITH ALL BELONGINGS AND PAPERWORK IN HAND, HANDED OFF TO SNF TRANSPORT.
[2022-09-23] MEDS ORDERED: TYLENOL 325MG325 MG PO (05:18)
[2022-09-23] MEDS ORDERED: EUCERIN1 CRE TOP (05:22)
[2022-09-23] MEDS ORDERED: FIBER STAT PO (05:23)
[2022-09-23] MEDS ORDERED: LINZESS72 MCG PO (05:26)
[2022-09-23] MEDS ORDERED: NEURONTIN400 MG/CAP PO (05:29)
[2022-09-23] MEDS ORDERED: PROTONIX 40MG T40 MG PO (05:32)
[2022-09-23] MEDS ORDERED: KLOR-CON SPRIN10 MEQ PO (05:33)
[2022-09-23] MEDS ORDERED: PREPH RC (05:34)
[2022-09-23] MEDS ORDERED: REFRESH TEARS 330 ML OP (05:36)
== END 2022-09-15 12:45 ==
LOC: SDCO 09:27
DX: C18.2 Malignant neoplasm of ascending colon (principal); K92.1 Melena; K64.1 Second degree hemorrhoids; D50.9 Iron deficiency anemia, unspecified; E66.9 Obesity, unspecified; E11.9 Type 2 diabetes mellitus without complications; Z79.4 Long term (current) use of insulin; Z68.30 Body mass index [BMI] 30.0-30.9, adult; Z79.899 Other long term (current) drug therapy; Z80.0 Family history of malignant neoplasm of digestive organs
CPT/HCPCS: J2704; J7030

== ENCOUNTER → 2022-10-18 | Outpatient (REF) | payer MEDICARE, BC, MEDICAID ==
[~2022-10-18] MED LIST changes: +ASPIRIN 81M81 MG/TA2 PO; +DESYREL 50MG50 MG PO; +EUCERIN1 CRE TOP; +FIBER STAT PO; +KLOR-CON SPRIN10 MEQ PO; +LINZESS72 MCG PO; +MONODOX100 PO; +NEURONTIN400 MG/CAP PO; +OMNICEF 300MG300 MG PO; +PACERONE400 MG PO; +REFRESH TEARS 330 ML OP; +TOPROL XL 25MG25 MG PO
[2022-10-18 11:20] LABS: COLLECTION METHOD CLEAN CATCH
[2022-10-18 11:24] LABS: MUCOUS Present (NOT PRESENT); SQUAMOUS EPITHELIAL 0-2 /hpf (0-10); URINE APPEARANCE Hazy (CLEAR/HAZY); URINE BACTERIA None Seen /hpf (NONE SEEN); URINE BLOOD Negative (NEGATIVE); URINE COLOR Yellow (YELLOW); URINE GLUCOSE Negative (NEGATIVE); URINE KETONE Negative (NEGATIVE); URINE NITRATE Negative (NEGATIVE); URINE PROTEIN(semi-quant) 1+ (NEGATIVE); URINE RBC 0-2 /hpf (0-2); URINE UROBILINOGEN 0.2 E.U/dL (0.2-1.0); URINE WBC 20-50 /hpf (0-2)
== END ==
LOC: ZCOL.LAB 10:26
PROVIDERS: Family Medicine
DX: Z01.812 Encounter for preprocedural laboratory examination (principal)